=== PATIENT | female | born 1965 | race Caucasian/White ===

== ENCOUNTER → 2019-05-07 | Outpatient (CLI) | payer OTHER ==
[~2019-05-07] MED LIST: ACET500; ALBIPROI INH; ALBU90OI; CYCL10 PO; HYDACE5 PO; KETO10 PO; MONT10T; MULVITMINE; OXYACE5T PO; PRED20 PO; RXOXYACE PO
[2019-05-10 12:07] LABS: HPV 16 Negative (Negative); HPV 18 Negative (Negative); HPV OTHER HR TYPES Negative (Negative)
== END | disposition home or self-care (01) ==
LOC: LAB 16:09 → LAB SHORT 16:09
PROVIDERS: Obstetrics & Gynecology
DX: Z01.419 Encounter for gynecological examination (general) (routine) without abnormal findings (principal)
CPT/HCPCS: 87624; G0123